=== PATIENT | male | born 1955 ===

== ENCOUNTER 2021-03-31 08:49 | Outpatient (CLI) | payer MEDICARE, SELFPAY ==
--- NOTE | 2021-03-31 08:57 | CT_ITS ---
WS: [id number] CT CHEST WITH INTRAVENOUS CONTRAST HISTORY: SOLITARY LUNG NODULE TECHNIQUE: Contiguous 5 mm axial imaging performed on the thorax. Coronal and sagittal reformats are submitted. All CT scans at [facility] use at least one of these dose optimization techniq ues: automated exposure control; mA and/or kV adjustment per patient size (includes targeted exams wh ere dose is matched to clinical indication); or iterative reconstruction. CONTRAST: Omnipaque 300; 95 mL IV. DLP: 855.01 mGycm COMPARISON: 12/28/2018 and 05/29/2018 Lungs and central airway: Severe bullous and paraseptal emphysema. Fibrotic area of scarring and bron chiectasis in the RIGHT upper lobe continues to demonstrate mild improvement. There are a few small s ubcentimeter nodules scattered throughout both lobes. 2 adjacent subcentimeter nodules in the RIGHT u pper lobe are stable since 12/28/2018. No new nodules. Pleura: Subpleural nodules but no pleural effusions. Heart and pericardium: Normal size heart with no pericardial effusion. Mediastinum and nicolasa: Extensive calcified mediastinal and hilar lymph nodes. Overall the size and rodríguez earance are unchanged since 12/28/2018. The esophagus is dilated and fluid-filled. There is an air-flu id level extending just above the regina. Vessels: Normal size aortic and pulmonary artery. No coronary artery calcifications. Chest wall and lower neck: No soft tissue masses. Upper abdomen: Hiatal hernia. Again noted is a fluid distended esophagus. Hepatic steatosis along the falciform ligament. No metastatic lesions within the liver. Mild thickening of the LEFT adrenal glan d is stable. 9 mm lymph node at the GE junction is stable. Subcentimeter cortical cyst LEFT kidney. Osseous structures: Moderate spondylitic changes throughout the thoracic spine. No destructive bone l esions. 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 CT/CT chest w con* [id number] IMPRESSION: 1. Severe emphysema with no enlarging or new pulmonary nodules or mass. 2. Focal area of fibrosis with traction bronchiectasis and nodules in the RIGH T upper lobe are stable since 12/28/2018. 3. No adenopathy. 4. New fluid distention of the esophagus with air-fluid level. Probably due to reflux disease. 5. Stable calcified mediastinal and hilar lymph nodes. 6. Hiatal hernia.
== END 2021-03-31 08:50 | disposition home or self-care (01) ==
LOC: RADWPI 08:53
PROVIDERS: PCP Family Medicine; Visit Provider Family Medicine
DX: R91.1 Solitary pulmonary nodule (principal); J43.9 Emphysema, unspecified; K44.9 Diaphragmatic hernia without obstruction or gangrene; J84.10 Pulmonary fibrosis, unspecified; J47.9 Bronchiectasis, uncomplicated
CPT/HCPCS: 71260

== ENCOUNTER 2023-02-07 08:19 | Outpatient (CLI) | payer MEDICARE, SELFPAY ==
--- NOTE | 2023-02-07 08:43 | CT_ITS ---
WS: [id number] CT chest w con* [id number] HISTORY: MULTIPLE LUNG NODULES TECHNIQUE: Axial imaging performed through the thorax. Coronal and sagittal reformats are submitted. All CT scans at [facility] use at least one of these dose optimization techniques: automated exposure control; mA and/or kV adjustment per patient size (includes targeted exams where dose is mat ched to clinical indication); or iterative reconstruction. CONTRAST: Omnipaque 350; 100 mL IV. DLP: 220.63 mGy.cm COMPARISON: 03/31/2021, 12/28/2018 Lungs and central airway: Hyperinflated lungs. Severe centrilobular and paraseptal emphysema. Mild pr ogression of biapical pleural thickening and scarring and traction bronchiectasis. Slightly greater R IGHT upper lobe. 3 mm pulmonary nodule adjacent to the fibrotic stranding RIGHT upper lobe. Stable lobulated nodule me asures 5 mm RIGHT upper lobe. Mild bronchial wall thickening in the lower lung acevedo and a RIGHT low er lobe calcified granuloma. Mild bronchiectasis in the lower lung acevedo. Pleura: Normal. No pleural effusion. Heart and pericardium: Normal size heart with no pericardial effusion. Mediastinum and nicolasa: Mildly prominent mediastinal and hilar lymph nodes. These lymph nodes are stabl e and similar to the prior examination. Vessels: Moderate atherosclerosis aorta. Normal size pulmonary artery. Chest wall and lower neck: No soft tissue masses. Upper abdomen: Small hiatal hernia. No adrenal mass. Cortical cyst mid LEFT kidney. This measures 7 m m. Mild atherosclerosis aorta. Osseous structures: Mild spondylitic changes. CT/CT chest w con* [id number] IMPRESSION: 1. Advanced chronic emphysematous changes with biapical fibrosis and traction bronchiectasis. 2. Mild progression of the traction bronchiectasis in the upper lung acevedo. 3. New 3 mm noncalcified nodule RIGHT upper lobe adjacent to the fibrotic lau ges. Nodule can be reevaluated by chest CT in 12 months.
[2023-02-07] MEDS: iohexol 350 mg/mL 500 mL Btl (per mL) IV (09:07)
== END 2023-02-07 08:20 | disposition home or self-care (01) ==
PROVIDERS: PCP Family Medicine; Visit Provider Family Medicine
DX: R91.8 Other nonspecific abnormal finding of lung field (principal); J84.10 Pulmonary fibrosis, unspecified; J47.9 Bronchiectasis, uncomplicated
CPT/HCPCS: 71260; Q9967